=== PATIENT | male | born 1985 | race Caucasian/White ===

== ENCOUNTER 2020-07-31 08:48 | Emergency (ER) | payer OTHER ==
[2020-07-31] MEDS ORDERED: Alum Hydroxide/Mag Hydroxide 15 ML, Lidocaine 2% 15 ML PO ONE ×2 (08:56)
[2020-07-31] MEDS ORDERED: Sodium Chloride 0.9% 10 ML Syringe FLUSH PRN (09:18)
[2020-07-31] MEDS ORDERED: Ondansetron 4 MG/2 ML SDV IVPUSH ONE (09:20)
[2020-07-31] MEDS ORDERED: Pantoprazole 40 MG Vial IVPUSH STA (09:20)
[2020-07-31] MEDS ORDERED: Sodium Chloride 0.9% 1,000 ML IV SCH (09:30)
[2020-07-31] MEDS: Morphine 2 MG/ML SYRINGE IVPUSH ONE ×2 (10:35→11:33)
[2020-07-31] MEDS ORDERED: Iopamidol 755 Mg/ML 100 ML Bottle IV ONE (10:45)
--- NOTE | 2020-07-31 11:37 | EDM.PDOC ---
ED HPI GENERAL MEDICAL PROBLEM - General Chief Complaint: Abdominal Pain Time Seen by Provider: 07/31/20 09:05 Source of Information: Reports: Patient History Limitations: Reports: No Limitations - History of Present Illness INITIAL COMMENTS - FREE TEXT/NARRATIVE: Patient presented to the ED because of abdominal pain over the epigastric area,burning,6/10 with associated nausea but no vomiting. There is no bloody stool or coffee ground emesis. There is no fever or chills, cough/cold symptoms. Abdominal Pain Score (Numeric/FACES): 6 - Related Data Allergies Allergy/AdvReac Type Severity Reaction Status Date / Time No Known Allergies Allergy Verified 07/31/20 08:57 Home Meds: Home Meds Albuterol Sulfate [Albuterol Sulfate Hfa] 2 inhalation IH ASDIRECTED PRN 07/31/20 [History] Montelukast [Singulair] 10 mg PO DAILY 07/31/20 [History] Omeprazole 20 mg PO ACBREAKFAST 07/31/20 [History] Zolpidem Tartrate [Ambien] 10 mg PO DAILY 07/31/20 [History] Past Medical History HEENT History: Reports: Impaired Vision Gastrointestinal History: Reports: GERD, PUD Musculoskeletal History: Reports: Fracture - Past Surgical History GI Surgical History: Reports: Appendectomy, Cholecystectomy Other Male Surgeries/Procedures: Ureteral reimplantation Social & Family History - Family History Family Medical History: Noncontributory - Tobacco Use Packs/Tins Daily: 0.5 - Caffeine Use Caffeine Use: Reports: Soda - Recreational Drug Use Recreational Drug Use: No ED ROS GENERAL - Review of Systems Review Of Systems: See Below Constitutional: Reports: No Symptoms HEENT: Reports: No Symptoms Respiratory: Reports: No Symptoms Cardiovascular: Reports: No Symptoms Endocrine: Reports: No Symptoms GI/Abdominal: Reports: Abdominal Pain, Nausea : Reports: No Symptoms Musculoskeletal: Reports: No Symptoms ED EXAM, GI/ABD - Physical Exam Exam: See Below Exam Limited By: No Limitations General Appearance: Alert, No Apparent Distress Ears: Normal External Exam, Normal Canal Nose: Normal Inspection, Normal Mucosa Throat/Mouth: Normal Inspection, Normal Lips Head: Atraumatic, Normocephalic Neck: Normal Inspection Respiratory/Chest: No Respiratory Distress, Lungs Clear, Normal Breath Sounds Cardiovascular: Normal Peripheral Pulses, Regular Rate, Rhythm, No Edema GI/Abdominal Exam: Normal Bowel Sounds, Soft, Other (epigastri tenderness) Back Exam: Normal Inspection, Full Range of Motion Extremities: Normal Inspection, Normal Range of Motion Neurological: Alert, Oriented, CN II-XII Intact Course - Vital Signs Text/Narrative:: Labs/CT-abs/pelvis was discussed with patient NS 1 L bolus Zofran 4 mg IV refused morphine GI cocktail Last Recorded V/S: Last Vital Signs Temp 36.8 C 07/31/20 08:58 Pulse 52 L 07/31/20 10:27 Resp 16 07/31/20 10:27 BP 126/80 07/31/20 10:27 Pulse Ox 99 07/31/20 10:27 - Orders/Labs/Meds Orders: Active Orders 24 hr Category Date Time Status Abdomen Pelvis w Cont [CT] Stat Exams 07/31/20 10:32 Ordered Sodium Chloride 0.9% [Normal Saline] 1,000 ml Med 07/31/20 09:30 Active IV ASDIRECTED Sodium Chloride 0.9% [Saline Flush] Med 07/31/20 09:18 Active 10 ml FLUSH ASDIRECTED PRN Saline Lock Insert [OM.PC] Routine Oth 07/31/20 09:18 Ordered Medication Orders Sodium Chloride (Normal Saline) 1,000 mls @ 999 mls/hr IV ASDIRECTED ARTURO Last Admin: 07/31/20 09:59 Dose: 999 mls/hr Documented by: ALVA Sodium Chloride (Saline Flush) 10 ml FLUSH ASDIRECTED PRN PRN Reason: Keep Vein Open Last Admin: 07/31/20 09:42 Dose: 10 ml Documented by: ALVA Labs: Laboratory Tests 07/31/20 07/31/20 07/31/20 Range/Units 09:30 09:30 09:30 WBC 6.2 (4.5-12.0) X10-3/uL RBC 5.41 (4.30-5.75) x10(6)uL Hgb 15.2 (13.5-17.8) g/dL Hct 45.8 (30.0-51.3) % MCV 84.6 (80-96) fL MCH 28.1 (27.7-33.6) pg MCHC 33.2 (32.2-35.4) g/dL RDW 12.0 (11.5-15.5) % Plt Count 208 (125-369) X10(3)uL MPV 9.5 (7.4-10.4) fL Neut % (Auto) 68.3 (46-82) % Lymph % (Auto) 16.3 (13-37) % [place] % (Auto) 9.4 (4-12) % Eos % (Auto) 5 (1.0-5.0) % Baso % (Auto) 1 (0-2) % Neut # (Auto) 4.2 (1.6-8.3) # Lymph # (Auto) 1.0 (0.6-5.0) # [place] # (Auto) 0.6 (0.0-1.3) # Eos # (Auto) 0.3 (0.0-0.8) # Baso # (Auto) 0.1 (0.0-0.2) # Sodium 139 (135-145) mmol/L Potassium 3.6 (3.5-5.3) mmol/L Chloride 104 (100-110) mmol/L Carbon Dioxide 26 (21-32) mmol/L BUN 14 (7-18) mg/dL Creatinine 0.9 (0.70-1.30) mg/dL Est Cr Clr Drug Dosing 125.50 mL/min Estimated GFR (MDRD) > 60 (>60) BUN/Creatinine Ratio 15.6 (9-20) Glucose 114 (80-116) mg/dL Calcium 9.4 (8.6-10.2) mg/dL Total Bilirubin 0.5 (0.1-1.3) mg/dL AST 16 (5-25) IU/L ALT 23 (12-36) U/L Alkaline Phosphatase 53 L (56-112) IU/L Total Protein 7.1 (6.0-8.0) g/dL Albumin 4.2 (3.5-5.2) g/dL Globulin 2.9 g/dL Albumin/Globulin Ratio 1.5 Amylase 51 (25-115) U/L Lipase 118 (73-393) U/L Urine Color (YELLOW) Urine Appearance (CLEAR) Urine pH (5.0-6.5) Ur Specific [place] (1.010-1.025) Urine Protein (NEGATIVE) mg/dL Urine Glucose (UA) (NORMAL) mg/dL Urine Ketones (NEGATIVE) mg/dL Urine Occult Blood (NEGATIVE) Urine Nitrite (NEGATIVE) Urine Bilirubin (NEGATIVE) Urine Urobilinogen (NEGATIVE) mg/dL Ur Leukocyte Esterase (NEGATIVE) Urine RBC (0-5) Urine WBC (0-5) Ur Squamous Epith Cells (NS,R,O) Urine Bacteria (NS) 07/31/20 Range/Units 10:20 WBC (4.5-12.0) X10-3/uL RBC (4.30-5.75) x10(6)uL Hgb (13.5-17.8) g/dL Hct (30.0-51.3) % MCV (80-96) fL MCH (27.7-33.6) pg MCHC (32.2-35.4) g/dL RDW (11.5-15.5) % Plt Count (125-369) X10(3)uL MPV (7.4-10.4) fL Neut % (Auto) (46-82) % Lymph % (Auto) (13-37) % [place] % (Auto) (4-12) % Eos % (Auto) (1.0-5.0) % Baso % (Auto) (0-2) % Neut # (Auto) (1.6-8.3) # Lymph # (Auto) (0.6-5.0) # [place] # (Auto) (0.0-1.3) # Eos # (Auto) (0.0-0.8) # Baso # (Auto) (0.0-0.2) # Sodium (135-145) mmol/L Potassium (3.5-5.3) mmol/L Chloride (100-110) mmol/L Carbon Dioxide (21-32) mmol/L BUN (7-18) mg/dL Creatinine (0.70-1.30) mg/dL Est Cr Clr Drug Dosing mL/min Estimated GFR (MDRD) (>60) BUN/Creatinine Ratio (9-20) Glucose (80-116) mg/dL Calcium (8.6-10.2) mg/dL Total Bilirubin (0.1-1.3) mg/dL AST (5-25) IU/L ALT (12-36) U/L Alkaline Phosphatase (56-112) IU/L Total Protein (6.0-8.0) g/dL Albumin (3.5-5.2) g/dL Globulin g/dL Albumin/Globulin Ratio Amylase (25-115) U/L Lipase (73-393) U/L Urine Color Yellow (YELLOW) Urine Appearance Clear (CLEAR) Urine pH 5.0 (5.0-6.5) Ur Specific [place] 1.025 (1.010-1.025) Urine Protein Negative (NEGATIVE) mg/dL Urine Glucose (UA) Normal (NORMAL) mg/dL Urine Ketones Negative (NEGATIVE) mg/dL Urine Occult Blood Trace (NEGATIVE) Urine Nitrite Negative (NEGATIVE) Urine Bilirubin Negative (NEGATIVE) Urine Urobilinogen Normal (NEGATIVE) mg/dL Ur Leukocyte Esterase Negative (NEGATIVE) Urine RBC 0-5 (0-5) Urine WBC 0-5 (0-5) Ur Squamous Epith Cells Rare (NS,R,O) Urine Bacteria Few H (NS) Meds: Medications Generic Name Dose Route Start Last Admin Trade Name Torstenq PRN Reason Stop Dose Admin Sodium Chloride 1,000 mls @ 999 mls/hr 07/31/20 09:30 07/31/20 09:59 Normal Saline IV 999 mls/hr ASDIRECTED ARTURO Administration Sodium Chloride 10 ml 07/31/20 09:18 07/31/20 09:42 Saline Flush FLUSH 10 ml ASDIRECTED PRN Administration Keep Vein Open Discontinued Medications Generic Name Dose Route Start Last Admin Trade Name Maryan PRN Reason Stop Dose Admin Al Hydroxide/Mg Hydroxide 15 0 ml 07/31/20 08:56 07/31/20 09:03 ml/ Lidocaine HCl 15 ml PO 07/31/20 08:57 15 ml ONETIME ONE Administration Iopamidol 100 ml 07/31/20 10:45 07/31/20 10:55 Isovue-370 (76%) IV 07/31/20 10:46 90 ml ONETIME ONE Administration Morphine Sulfate 2 mg 07/31/20 10:31 07/31/20 11:33 Morphine IVPUSH 07/31/20 10:32 Not Given ONETIME ONE Ondansetron HCl 4 mg 07/31/20 09:20 07/31/20 09:41 Zofran IVPUSH 07/31/20 09:21 4 mg ONETIME ONE Administration Pantoprazole Sodium 80 mg 07/31/20 09:20 07/31/20 09:41 Protonix Iv IVPUSH 07/31/20 09:21 80 mg NOW STA Administration Departure - Departure Time of Disposition: 11:35 Disposition: Home, Self-Care 01 Condition: Good Clinical Impression: Peptic ulcer - Discharge Information Instructions: Peptic Ulcer, [id number] Referrals: Elizabeth Khanna FUELER [Primary Care Provider] - Forms: ED Department Discharge Additional Instructions: Please read discharge instructions on peptic ulcer disease Avoid NSAIDS like aspirin,aleve,ibuprofen etc Increase your omeprazole from 20 mg to 40 mg once daily Follow up with your doctor if your pain worsens or persist Sepsis Event Note (ED) - Evaluation Sepsis Screening Result: No Definite Risk - Focused Exam Vital Signs: Vital Signs Temp Pulse Resp BP Pulse Ox 07/31/20 10:27 52 L 16 126/80 99 07/31/20 08:58 36.8 C 67 16 141/80 H 97 - My Orders Last 24 Hours: My Active Orders 07/31/20 09:18 Sodium Chloride 0.9% [Saline Flush] 10 ml FLUSH ASDIRECTED PRN Saline Lock Insert [OM.PC] Routine 07/31/20 09:30 Sodium Chloride 0.9% [Normal Saline] 1,000 ml IV ASDIRECTED 07/31/20 10:32 Abdomen Pelvis w Cont [CT] Stat - Assessment/Plan Last 24 Hours: My Active Orders 07/31/20 09:18 Sodium Chloride 0.9% [Saline Flush] 10 ml FLUSH ASDIRECTED PRN Saline Lock Insert [OM.PC] Routine 07/31/20 09:30 Sodium Chloride 0.9% [Normal Saline] 1,000 ml IV ASDIRECTED 07/31/20 10:32 Abdomen Pelvis w Cont [CT] Stat
--- NOTE | 2020-07-31 11:58 | CT ---
INDICATION: Abdominal pain with history of perforated ulcer. CT ABDOMEN AND PELVIS WITH CONTRAST: Spiral 3.75 mm axial sections were obtained through the abdomen and pelvis with 90 cc Isovue-370 at 100 second delay, 2 cc per second, with sagittal and coronal reconstructions 07/31/20 - no comparisons available. Total exam DLP was 502.89 mGy-cm. Lower lung kyle and pleural spaces visualized appeared normal. The heart is normal in size. No pericardial effusion was seen. The liver appeared normal. Gallbladder is absent compatible with history of its removal. Adrenal glands, kidneys, and pancreas appeared normal with common bile duct normal in caliber in the head of the pancreas. Spleen appeared normal in size. A low-density abnormality is noted in the posterior medial spleen which is decreased in density and measured 12 mm. An overlying posterior sinus tract may be present extending to that low-density abnormality, etiology may be on the basis of previous infection or anomaly. A neoplastic process is felt to be less likely. Evidence of previous surgery is noted near the gastric fundus and in the gastric antral area with no definite complicating process. No evidence of free air or bowel obstruction was identified. The appendix is absent compatible with history appendectomy. There appears to be thickening of the wall of the urinary bladder which should be correlated clinically as a possibility of cystitis. The prostate appears to be enlarged measuring approximately 50 x 34 x 34 mm. No other organomegaly, mass lesions or free fluid collections were identified in the abdomen or pelvis. No retroperitoneal mass was identified. IMPRESSION: 1. Gastric postsurgical changes. 2. Post cholecystectomy. 3. Post appendectomy. 4. Small low-density abnormality in the spleen posteromedially most likely benign, most likely to be a hemangioma. 5. Mild prostatic enlargement. Report was called to Dr. Hay at 1130 hours. [facility]
== END 2020-07-31 11:48 | disposition home or self-care (01) ==
LOC: FB.ED 08:48
DX: K27.9 Peptic ulcer, site unspecified, unspecified as acute or chronic, without hemorrhage or perforation (principal); F17.210 Nicotine dependence, cigarettes, uncomplicated; Z79.899 Other long term (current) drug therapy
CPT/HCPCS: 36415; 74177; 80053; 81001; 82150; 83690; 85025; 96361; 96374; 96375; 99284; A9270; C9113; J2405; J7030; Q9967; J2270

== ENCOUNTER 2024-04-06 08:23 | Day surgery (SDC) | payer OTHER ==
[2024-04-06] MEDS ORDERED: Propofol 200 MG/20 ML SDV IV ONE (08:24)
[2024-04-06] MEDS ORDERED: Midazolam 1 MG/ML 2 ML SDV IV ONE (08:24)
[2024-04-06] MEDS ORDERED: Sodium Chloride 0.9% 10 ML Syringe FLUSH PRN (08:30)
[2024-04-06] MEDS: Lactated Ringers 1,000 ML IV SCH (09:03)
[2024-04-06] MEDS: Simethicone Drops 40 MG/0.6 ML 30 ML Bottle ONE (09:25)
== END 2024-04-06 10:53 | disposition home or self-care (01) ==
LOC: FB.SDS 08:23
PROVIDERS: ATTEND Surgery
DX: K31.89 Other diseases of stomach and duodenum (principal); J45.909 Unspecified asthma, uncomplicated; F17.220 Nicotine dependence, chewing tobacco, uncomplicated; Z90.49 Acquired absence of other specified parts of digestive tract; Z98.890 Other specified postprocedural states; Z79.899 Other long term (current) drug therapy
CPT/HCPCS: 00731; 88305; 88325; 88342; A9270-GY; J2250; J2704; J7120

== ENCOUNTER 2024-06-07 08:29 | Day surgery (SDC) | payer OTHER ==
[2024-06-07] MEDS ORDERED: Midazolam 1 MG/ML 2 ML SDV IV ONE (08:30)
[2024-06-07] MEDS ORDERED: Glycopyrrolate 0.2 MG/ML 5 ML MDV IV ONE (08:30)
[2024-06-07] MEDS ORDERED: Propofol 200 MG/20 ML SDV IV ONE (08:30)
[2024-06-07] MEDS ORDERED: Lidocaine 2% 100 MG/5 ML Syringe IVPUSH ONE (08:30)
[2024-06-07] MEDS ORDERED: Sodium Chloride 0.9% 10 ML Syringe FLUSH PRN (08:45)
[2024-06-07] MEDS: Lactated Ringers 1,000 ML IV SCH (09:20)
[2024-06-07 11:12] VITALS: BP 113/75; PULSE 89
== END 2024-06-07 11:05 | disposition home or self-care (01) ==
LOC: FB.SDS 08:29
PROVIDERS: ATTEND Surgery
DX: K62.5 Hemorrhage of anus and rectum (principal); K31.89 Other diseases of stomach and duodenum; K28.9 Gastrojejunal ulcer, unspecified as acute or chronic, without hemorrhage or perforation; F17.220 Nicotine dependence, chewing tobacco, uncomplicated; Z79.899 Other long term (current) drug therapy; Z88.8 Allergy status to other drugs, medicaments and biological substances; Z91.09 Other allergy status, other than to drugs and biological substances
CPT/HCPCS: 00811; J1596; J2250; J2704; J7120